=== PATIENT | female | born 1960 | race Two or more races ===

== ENCOUNTER 2017-12-18 11:08 | Emergency (ER) | payer SELFPAY ==
[2017-12-18 11:30] LABS: BILIRUBIN,URINE SMALL (NEG); CLARITY,URINE CLEAR; COLOR,URINE YELLOW; GLUCOSE,URINE NEGATIVE (NEG); NITRITE,URINE NEGATIVE (NEG); PROTEIN,URINE NEGATIVE (NEG-TRACE); UROBILINOGEN,URINE 0.2 mg/dL (0.2 mg/dL)
[2017-12-18 11:40] LABS: BACTERIA,URINE FEW /HPF (0-FEW); RBC,URINE OCC /HPF (0-2); SQUAMOUS EPITHELIAL CELL,UR FEW /LPF; WBC,URINE OCC /HPF (0-4)
[2017-12-18] MEDS: IV NORMAL SALINE 1000ML BAG 1,000 ML IV (11:53)
[2017-12-18 11:54] LABS: ADD MAN DIFF? NO
[2017-12-18] MEDS: PANTOPRAZOLE IV PUSH 40 MG VIAL. IVP (11:55)
[2017-12-18] MEDS: ONDANSETRON PF 4 MG/2 ML VIAL. IV (11:57)
[2017-12-18] MEDS: fentaNYL PF VIAL 100 MCG/2 ML VIAL IV (11:58)
[2017-12-18 11:59] LABS: BASO # 0.1 x10^3/uL (0.0-0.2); BASO % 1 % (0-3); EOS # 0.2 x10^3/uL (0.0-0.7); EOS % 2 % (0-3); HEMATOCRIT 42.3 % (36.0-47.0); HEMOGLOBIN 14.4 g/dL (12.0-15.5); LYMPH # 1.9 x10^3/uL (1.0-4.8); LYMPH % 19 % (24-48); MEAN CORPUSCULAR HEMOGLOBIN 29 pg (25-35); MEAN CORPUSCULAR HGB CONC 34 g/dL (31-37); MEAN CORPUSCULAR VOLUME 84 fL (79-100); MONO # 0.5 x10^3/uL (0.0-1.1); MONO % 5 % (0-9); NEUT # 7.4 x10^3uL (1.8-7.7); NEUT % 74 % (31-73); PLATELET COUNT 322 x10^3/uL (140-400); RED BLOOD COUNT 5.03 x10^6/uL (3.50-5.40); WHITE BLOOD COUNT 10.1 x10^3/uL (4.0-11.0)
[2017-12-18 12:15] LABS: ANION GAP 9 (6-14); BLOOD UREA NITROGEN 14 mg/dL (7-20); BUN/CREATININE RATIO 16 (6-20); CALCIUM 8.5 mg/dL (8.5-10.1); CARBON DIOXIDE 29 mmol/L (21-32); CHLORIDE 102 mmol/L (98-107); CREATININE 0.9 mg/dL (0.6-1.0); GFR 64.8; GLUCOSE 174 mg/dL (70-99); POTASSIUM 3.4 mmol/L (3.5-5.1); SODIUM 140 mmol/L (136-145)
[2017-12-18 12:23] LABS: TROPONINI < 0.017 ng/mL (0.000-0.055)
[2017-12-18 12:28] LABS: ALBUMIN 3.3 g/dL (3.4-5.0); ALBUMIN/GLOBULIN RATIO 0.8 (1.0-1.7); ALK PHOS 98 U/L (46-116); ALT (SGPT) 52 U/L (14-59); AST (SGOT) 23 U/L (15-37); LIPASE 81 U/L (73-393); TOTAL BILIRUBIN 0.4 mg/dL (0.2-1.0); TOTAL PROTEIN 7.5 g/dL (6.4-8.2)
[2017-12-18 12:37] LABS: CKMB MASS < 0.5 ng/mL (0.0-3.6); CREATINE KINASE 60 U/L (26-192)
== END 2017-12-18 13:30 | disposition home or self-care (01) ==
LOC: ER 11:08
DX: K21.9 Gastro-esophageal reflux disease without esophagitis (principal); R11.2 Nausea with vomiting, unspecified; K92.1 Melena; R19.7 Diarrhea, unspecified; I10 Essential (primary) hypertension
CPT/HCPCS: 36415; 76700; 80053; 81001; 82553; 83690; 84484; 85025; 93005; 96361; 96374; 96375; 99285-25; C9113; J2405; J3010; J7030